=== PATIENT | female | born 1990 | race Caucasian/White ===

== ENCOUNTER 2018-11-19 09:00 | Inpatient (IN) ==
[2018-11-19] MEDS ORDERED: ZOFRAN IV PRN (20:01)
[2018-11-19] MEDS ORDERED: BRETHINE SUBQ PRN (20:01)
[2018-11-19] MEDS ORDERED: REGLAN PO ONE (20:01)
[2018-11-19] MEDS ORDERED: AMBIEN PO PRN (20:01)
[2018-11-19] MEDS ORDERED: PEPCID PO PRN (20:01)
[2018-11-19] MEDS ORDERED: PEPCID PO ONE (20:01)
[2018-11-19] MEDS ORDERED: STADOL IV PRN ×3 (20:01)
[2018-11-19] MEDS ORDERED: TYLENOL PO PRN (20:01)
[2018-11-19] MEDS ORDERED: PEPCID IV PRN (20:01)
[2018-11-19] MEDS ORDERED: PITOCIN 30 UNITS/NS 30 UNIT/500 ML IV.SOLN IV SCH (20:15)
[2018-11-19] MEDS ORDERED: CYTOTEC VAG ONE (21:00)
[2018-11-19] MEDS: LR 1,000 ML IV ONE (21:01)
[2018-11-19 21:17] LABS: BASO# 0.07 X1000 (0.0-0.2); BASO% 0.7 % (0.0-0.8); EOS# 0.06 X1000 (0.0-0.7); EOS% 0.6 % (0.0-10.0); HEMATOCRIT 35.3 % (37.0-47.0); HEMOGLOBIN 11.3 g/dL (12.0-16.0); IMM GRAN# 0.05 X1000 (0.0-0.04); IMM GRAN% 0.5 % (0.0-0.5); LYMPH# 2.27 X1000 (1.2-3.4); MCH 26.4 PG (27-31); MCV 82.5 FL (81-99); MONO# 0.65 X1000 (0.11-0.59); MONO% 6.9 % (1.7-9.3); NEUT# 6.35 X1000 (1.4-6.5); NEUT% 67.3 % (42.2-75.2); PLT 200 X1000 (130-400); RBC 4.28 XMIL (4.2-5.4); RDW 18.2 % (11.5-14.5); WBC 9.45 X1000 (4.8-10.8)
[2018-11-20] MEDS: CYTOTEC ONE ×2 (02:05→02:06)
[2018-11-20] MEDS: CYTOTEC VAG SCH ×2 (02:11→05:11)
[2018-11-20 02:16] LABS: URINE SOURCE VOIDED
[2018-11-20 02:30] LABS: BILIRUBIN URINE NEGATIVE (NEGATIVE); BLOOD URINE NEGATIVE (NEGATIVE); CLARITY CLEAR (CLEAR); COLOR YELLOW; GLUCOSE URINE NEGATIVE (NEGATIVE); KETONE URINE NEGATIVE (NEGATIVE); LEUKOCYTES URINE 1+ (NEGATIVE); NITRITE URINE NEGATIVE (NEGATIVE); PH URINE 6.5; PROTEIN URINE NEGATIVE (NEGATIVE); UROBILINOGEN URINE NORMAL
[2018-11-20 02:38] LABS: UR AMPHETAMINES QUAL NONE DETECTED (NONE DETECT); UR BARBITUATES QUAL NONE DETECTED (NONE DETECT); UR BENZODIAZEPIN QUAL NONE DETECTED (NONE DETECT); UR CANNABINOIDS QUAL NONE DETECTED (NONE DETECT); UR COCAINE QUAL NONE DETECTED (NONE DETECT); UR METHADONE QUAL NONE DETECTED (NONE DETECT); UR METHAMPHETAMINE QUAL NONE DETECTED (NONE DETECT); UR OPIATES QUAL NONE DETECTED (NONE DETECT); UR OXYCODONE QUAL NONE DETECTED (NONE DETECT); UR PCP QUAL NONE DETECTED (NONE DETECT); UR PROPOXYPHENE QUAL NONE DETECTED (NONE DETECT); UR TCA QUAL NONE DETECTED (NONE DETECT)
[2018-11-20] MEDS ORDERED: FENTANYL-BUPIV-NS 2 MCG-0.1% 250 ML EPIDURAL PRN (06:56)
[2018-11-20] MEDS ORDERED: FENTANYL IV ONE (07:00)
[2018-11-20] MEDS ORDERED: NAROPIN 0.2% INJ ONE (07:00)
[2018-11-20] MEDS: LR 1,000 ML IV ONE (07:11)
[2018-11-20] MEDS ORDERED: MINERAL OIL TOP PRN (07:44)
[2018-11-20] MEDS ORDERED: XYLOCAINE-MPF 1% INJ PRN ×2 (07:44→08:06)
[2018-11-20] MEDS ORDERED: XYLOCAINE-MPF 2% ONE (08:00)
[2018-11-20] MEDS ORDERED: NEO-SYNEPHRINE ONE (08:00)
[2018-11-20] MEDS ORDERED: SODIUM CHLORIDE 0.9% 10 ML ONE (08:01)
[2018-11-20] MEDS ORDERED: BENADRYL PO PRN (08:06)
[2018-11-20] MEDS ORDERED: PERI MEDS (DERMOPLAST/NUPERCAINAL/TUCKS) MISC PRN (08:06)
[2018-11-20] MEDS ORDERED: AMBIEN PO PRN (08:06)
[2018-11-20] MEDS ORDERED: CYTOTEC PO PRN (08:06)
[2018-11-20] MEDS ORDERED: HYDROXYZINE IM PRN (08:06)
[2018-11-20] MEDS ORDERED: PITOCIN IM PRN (08:06)
[2018-11-20] MEDS ORDERED: MINERAL OIL PO PRN (08:06)
[2018-11-20] MEDS ORDERED: BOOSTRIX VACCINE IM ONE (08:06)
[2018-11-20] MEDS ORDERED: BENADRYL IV PRN (08:06)
[2018-11-20] MEDS ORDERED: M-M-R II VACCINE SUBQ ONE (08:06)
[2018-11-20] MEDS ORDERED: ATARAX PO PRN (08:06)
[2018-11-20] MEDS ORDERED: PITOCIN 30 UNITS/NS 30 UNIT/500 ML IV.SOLN IV SCH (08:15)
[2018-11-20] MEDS ORDERED: PITOCIN 20 UNITS/NS 20 UNITS/1,000 ML IV.SOLN IV SCH (08:15)
--- NOTE | 2018-11-20 09:11 | HISTORY AND PHYSICAL ---
HISTORY OF PRESENT ILLNESS: The patient is a 28-year-old G 2 P 1-0-0-1 at 40 weeks and 2 days, who presents for induction of labor secondary to post dates. The patient reports good movement. Denies contractions, leakage of fluid, or vaginal bleeding. 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 PAST MEDICAL HISTORY: Methyltetrahydrofolate reduction mutation. SURGICAL HISTORY: None. ALLERGIES: Penicillin. SOCIAL HISTORY: Denies tobacco, alcohol, or drug use. OBSTETRICAL HISTORY: G 2 P 1-0-0-1, 1 full term vaginal delivery in 2016 at 40 weeks. HIGH SCHOOL VICE PRINCIPAL HISTORY: Denies STD exposure. Menarche at age 14. FAMILY HISTORY: Paternal grandfather and father with hypertension. Paternal grandfather with diabetes. VITAL SIGNS: Temperature 97 degrees Fahrenheit, pulse rate 58, respiration 18, blood pressure 105/60. BMI 27.9 kg/m2. PHYSICAL EXAMINATION: GENERAL: No acute distress, alert, awake, oriented x3. CARDIOVASCULAR: Regular rate and rhythm. Positive S1, S2. RESPIRATORY: Clear to auscultation bilaterally. ABDOMEN: Gravid, nontender to palpation. EXTREMITIES: Negative calf tenderness. STERILE VAGINAL EXAM: 3 cm dilated, 60% effaced, -3 station. Electronic monitoring baseline 120, moderate variability, negative accelerations, negative decelerations, category 1 tracing contractions q.2-3 minutes. LABORATORY: WBC 9.45, hemoglobin 11.3, hematocrit 35.3, platelets 200. RPR nonreactive. GBS negative. ASSESSMENT: Ms. Garibay is a 28-year-old 2 para 1-0-0-1 at 40 weeks and 2 days, who presents for induction of labor secondary to post dates. PLAN: 1. Admit to Labor and Delivery. 2. Plan for induction of labor with Cytotec and augmentation with Pitocin. 3. Continue with monitoring. 4. Estimated weight 7-1/2 pounds. 5. Anticipate spontaneous vaginal delivery.
--- NOTE | 2018-11-20 13:45 | OPERATIVE NOTE ---
PROCEDURE DATE: 11/20/2018 PROCEDURE PERFORMED: Vaginal delivery. DESCRIPTION OF PROCEDURE: At 9:47, the patient delivered a viable male , weighing 6 pounds 12 ounces, with Apgars of 9 and 10 at one and five minutes respectively. The vertex was delivered spontaneously over an intact perineum. No nuchal cord was identified. The anterior shoulders were delivered atraumatically by maternal expulsive forces with assistance of downward traction. The posterior shoulder was delivered with maternal expulsive forces efforts and upward traction. The remainder of the fetus delivered spontaneously. Upon delivery, the cord was clamped and cut, and the infant was passed to the waiting captain cannery tender staff. Cord blood was obtained. Placenta delivered spontaneously intact with a three-vessel cord. To enhance uterine contractions, IV oxytocin was administered. The cervix, vagina, and perineum were inspected for lacerations. No lacerations identified. Estimated blood loss 250 mL.
[2018-11-20] MEDS: MOTRIN PO PRN (19:29)
[2018-11-21] MEDS: PERICOLACE PO SCH ×2 (00:28→19:59)
[2018-11-21] MEDS: MOTRIN PO PRN ×3 (04:23→20:25)
[2018-11-21 06:54] LABS: BASO# 0.05 X1000 (0.0-0.2); BASO% 0.5 % (0.0-0.8); EOS# 0.12 X1000 (0.0-0.7); EOS% 1.1 % (0.0-10.0); HEMATOCRIT 30.8 % (37.0-47.0); HEMOGLOBIN 9.4 g/dL (12.0-16.0); IMM GRAN# 0.06 X1000 (0.0-0.04); IMM GRAN% 0.6 % (0.0-0.5); LYMPH# 2.84 X1000 (1.2-3.4); LYMPH% 26.8 % (20.5-51.1); MCH 25.9 PG (27-31); MCHC 30.5 g/dL (33-37); MCV 84.8 FL (81-99); MONO# 0.85 X1000 (0.11-0.59); MPV 11.8 FL (7.4-10.4); NEUT# 6.67 X1000 (1.4-6.5); PLT 199 X1000 (130-400); RBC 3.63 XMIL (4.2-5.4); RDW 18.4 % (11.5-14.5); WBC 10.59 X1000 (4.8-10.8)
--- NOTE | 2018-11-21 07:48 | OB/GYN PROGRESS NOTE ---
Progress Note OB - . OB Progress Note: Vital Signs - 24 hr 11/20/18 10:00 11/20/18 10:10 11/20/18 10:20 Temperature 98 F Pulse Rate 95 H 88 94 H Respiratory Rate 20 20 20 Blood Pressure 128/95 Blood Pressure [Right Arm] 128/95 135/69 150/84 O2 Sat by Pulse Oximetry 98 100 99 11/20/18 10:30 11/20/18 10:40 11/20/18 10:50 Temperature Pulse Rate 91 H 80 85 Respiratory Rate 18 20 20 Blood Pressure Blood Pressure [Right Arm] 139/79 139/64 115/55 O2 Sat by Pulse Oximetry 100 98 99 11/20/18 11:00 11/20/18 13:00 11/20/18 16:30 Temperature 97.8 F 98.8 F Pulse Rate 79 73 79 Respiratory Rate 20 20 20 Blood Pressure 135/78 112/71 120/72 Blood Pressure [Right Arm] 135/78 O2 Sat by Pulse Oximetry 99 98 98 11/20/18 20:30 11/21/18 00:10 11/21/18 04:25 Temperature 97.6 F 97.8 F 97.5 F L Pulse Rate 67 69 77 Respiratory Rate 18 18 18 Blood Pressure 127/73 121/72 116/68 Blood Pressure [Right Arm] O2 Sat by Pulse Oximetry 95 98 98 Laboratory Results - last 24 hr 11/21/18 05:17 WBC 10.59 RBC 3.63 L Hgb 9.4 L D Hct 30.8 L MCV 84.8 MCH 25.9 L MCHC 30.5 L RDW Std Deviation 18.4 H Plt Count 199 MPV 11.8 H Immature Gran % (Auto) 0.6 H Neut % (Auto) 63.0 Lymph % (Auto) 26.8 Fleming % (Auto) 8.0 Eos % (Auto) 1.1 Baso % (Auto) 0.5 Immature Gran # (Auto) 0.06 H Neut # (Auto) 6.67 H Lymph # (Auto) 2.84 Fleming # (Auto) 0.85 H Eos # (Auto) 0.12 Baso # (Auto) 0.05 PP1 No cx vssaf s/nt -cce hgb 9.4 from11.3 home in am
[2018-11-22 10:03] VITALS: BP 116/71
[2018-11-22] MEDS: MOTRIN PO PRN (10:17)
--- NOTE | 2018-11-22 11:39 | OB/GYN PROGRESS NOTE ---
Progress Note OB - . Patient Problems: Current Active Problems Problem Status Onset (spontaneous vaginal delivery) Acute OB Progress Note: Vital Signs - 24 hr 11/21/18 12:15 11/21/18 16:41 11/21/18 19:54 Temperature 96.5 F L 97 F L 97.2 F L Pulse Rate 84 73 77 Respiratory Rate 18 18 18 Blood Pressure 115/69 117/70 113/76 O2 Sat by Pulse Oximetry 96 97 97 11/21/18 23:58 11/22/18 08:30 Temperature 98.2 F 97.3 F L Pulse Rate 68 67 Respiratory Rate 18 20 Blood Pressure 98/58 116/71 O2 Sat by Pulse Oximetry 98 99 S: Patient without complaints. Denied fever, chills, N/V, SOB, or chest pain. Has some abdominal cramping, but controlled with ibuprofen. Lochia decreasing; as much as a period now. Breast-feeding without difficulty. Desires Mirena for contraception. O: Gen: NAD; AAOx3 CV: RRR Pulm: CTAB; no rhonchi, wheezing, or rales Abd: soft; NTTP; non-distended; active bowel sounds; fundus firm and below umbilicus Ext: no LE TTP Labs: reviewed A&P: 28yo s/p at 40w2d, 1. PPD#2- no concerns -DC home today - precautions given; f/u with Dr. Hilton in 4-6 weeks
--- NOTE | 2018-11-22 23:19 | DISCHARGE SUMMARY ---
ADMISSION DATE: 11/19/2018 DISCHARGE DATE: 11/22/2018 DISCHARGE DIAGNOSES: 1. A 28-year-old 2, para 2-0-0-2, status post spontaneous vaginal delivery at 40 weeks and 2 days. 2. MTHFR mutation. HOSPITAL COURSE: This a 28-year-old now G2, P2-0-0-2 who was admitted at 40 weeks and 2 days for induction of labor due to "post due date." This is a patient of Dr. Hilton. The patient had a history significant of MTHFR mutation. The patient also had a penicillin allergy. The patient had a spontaneous vaginal delivery on 11/20/2018. She delivered a male weighing 6 pounds 12 ounces. course was completely without complications. The patient was discharged on day #2 in stable condition. precautions were given and when to follow up in clinic. The patient was and desires Mirena for contraception. LABORATORY: Predelivery hemoglobin and hematocrit 11.3 and 35.3; postdelivery 9.4 and 30.8. Platelet count 199,000. UDS negative. RPR nonreactive. DISCHARGE DIET: Regular. DISCHARGE CONDITION: Stable. DISCHARGE MEDICATIONS: Ibuprofen 800 mg q.8 hours p.r.n. cramping; ferrous sulfate 325 mg daily; vitamin C 500 mg daily; Ashley-Colace daily as needed for constipation. DISCHARGE INSTRUCTIONS: precautions were given and she was told to follow up in 4-[address] Hilton.
[2018-11-23] MEDS ORDERED: FERROUS SULFATE PO SCH (09:00)
[2018-11-23] MEDS ORDERED: VITAMIN C PO SCH (09:00)
== END 2018-11-22 12:45 | disposition home or self-care (01) | DRG 806 ==
LOC: P.LD 19:59
PROVIDERS: ADMIT Obstetrics & Gynecology; ATTEND Obstetrics & Gynecology